=== PATIENT | male | born 1975 | race Caucasian/White ===

== ENCOUNTER 2021-06-24 19:37 | Emergency (ER) | payer OTHER ==
[~2021-06-24] VITALS: Ht 180.3 cm; Wt 77.6 kg
--- NOTE | 2021-06-24 19:40 | NUR ---
PT BIBRA 86 FOUND IN FRONT OF A STORE +ETOH BG 113 PER RA. VSS. PT LETHARGIC RESPONSIVE TO PAIN. TOLERATING R/A WELL WITH NO SOB. CONNECTED PT TO POX AND MONITOR. SAFETY 1:[address]
--- NOTE | 2021-06-24 20:13 | NUR ---
PT TAKEN TO CT VIA ADAM
[2021-06-24] MEDS ORDERED: Thiamine 100 MG/ML VIAL ONE (20:19)
[2021-06-24] MEDS ORDERED: IV NS 0.9% 1,000 ML IV ONE (20:30)
[2021-06-24] MEDS ORDERED: Thiamine 100 MG in IV D5W 50 ML IV SCH (20:30)
[2021-06-25 01:30] VITALS: BP 104/66
--- NOTE | 2021-06-25 02:40 | NUR ---
PATIENT AWAKE AND ALERT GIVEN WATER.
--- NOTE | 2021-06-25 03:21 | NUR ---
PT AWAKE AND ALERT AMBULATING TO RESTROOM WITH STEADY GAIT.
--- NOTE | 2021-06-25 05:50 | NUR ---
Patient discharged to home in stable condition. Written and verbal after care instructions given. Patient verbalizes understanding of instruction.
== END 2021-06-25 05:50 | disposition home or self-care (01) ==
LOC: EDBD 19:37 → ER 19:37
DX: F10.129 Alcohol abuse with intoxication, unspecified (principal); Y90.9 Presence of alcohol in blood, level not specified
CPT/HCPCS: 70450; 82962; 96365; 99284; J3411 ×2; J7030; J7060